=== PATIENT | female | born 1965 | race African-American/Black ===

== ENCOUNTER 2018-10-03 17:19 | Inpatient (IN) | payer MEDICARE, MEDICAID ==
[~2018-10-03 17:19] MED LIST: ISOVUE-370 76%-LOCM 1 ML ONE
[2018-10-03] MEDS ORDERED: Ondansetron PF 4 MG/2 ML Vial ONE (17:30)
[2018-10-03] MEDS ORDERED: Morphine 4 MG/ML VIAL ONE ×2 (17:30→19:37)
[2018-10-03] MEDS ORDERED: Adacel (T-DAP) 0.5 ML SYRINGE ONE (17:30)
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
[2018-10-03 18:13] LABS: #Eosinphils 0.1 thou/uL (0.0-0.7); #Lymphocytes 1.5 thou/uL (1.20-3.40); #Monocytes 0.8 thou/uL (0.11-0.59); %Basophils 0.3 % (0.0-1.0); %Eosinophils 0.9 % (0.0-10.0); %Lymphocytes 9.4 % (21.0-51.0); %Monocytes 4.6 % (0.0-10.0); %Neutrophils 84.9 % (42.0-75.0); Hemoglobin 12.4 g/dL (12.0-16.0); Mean Corpuscular HGB CONC 31.5 g/dL (32.0-36.0); Mean Corpuscular Hemoglobin 25.5 pg (27.0-31.0); Mean Corpuscular Volume 81.1 fL (78.0-98.0); Mean Platelet Volume 7.7 fL (7.4-10.4); Platelet Count 316 thou/uL (130-400); RBC Distribution Width 13.6 % (11.5-14.5); Red Blood Cell (RBC) Count 4.87 mill/uL (4.20-5.40); White Blood Cell (WBC) Count 16.5 thou/uL (4.8-10.8)
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
[2018-10-03] MEDS ORDERED: Lidocaine 1% w/Epinephrine 1:100K 20 ML VIAL ONE (18:22)
[2018-10-03 18:23] LABS: ALT (SGPT) 25 U/L (8-55); AST (SGOT) 61 U/L (5-34); Albumin 3.7 g/dL (3.5-5.0); Alkaline Phosphatase 90 U/L (40-150); Anion Gap 16 mmol/L (10-20); BUN (Urea Nitrogen) 10 mg/dL (9.8-20.1); Bilirubin, Total 0.3 mg/dL (0.2-1.2); Calc. Creatinine Clearance 0 mL/min (70-130); Calcium 9.2 mg/dL (7.8-10.44); Carbon Dioxide 19 mmol/L (22-29); Chloride 108 mmol/L (98-107); Estimated GFR-MDRD 53; Globulin 3.2 g/dL (2.4-3.5); Glucose 202 mg/dL (70-105); Potassium 3.5 mmol/L (3.5-5.1); Protein, Total 6.9 g/dL (6.0-8.3); Sodium 139 mmol/L (136-145)
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
[2018-10-03 19:04] LABS: Prothrombin Time 13.6 SEC (12.0-14.7)
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
[2018-10-03] MEDS ORDERED: Ketorolac Tromethamine 30 MG/ML VIAL ONE ×2 (19:55→19:56)
[2018-10-03] MEDS ORDERED: Acetaminophen 1,000 MG in Premix Bag 1 BAG IVPB ONE (20:00)
[2018-10-03] MEDS ORDERED: Promethazine HCl 25 MG/ML VIAL IM PRN (20:15)
[2018-10-03] MEDS ORDERED: Ondansetron PF 4 MG/2 ML Vial IVP PRN (20:15)
[2018-10-03] MEDS ORDERED: Dextrose 5% in Water 1,000 ML IV PRN (20:15)
[2018-10-03] MEDS ORDERED: Rib Fracture Protocol IV SCH (20:15)
[2018-10-03] MEDS ORDERED: Dextrose 50% Abboject 50 ML SYRINGE SLOW IVP PRN (20:15)
[2018-10-03] MEDS ORDERED: hydrALAZINE 20 MG/ML VIAL SLOW IVP PRN (20:15)
[2018-10-03] MEDS ORDERED: Famotidine 20 MG TAB PO SCH (21:00)
[2018-10-03 22:13] VITALS: BMI 36.6
[2018-10-03 23:20] LABS: Lactic Acid 1.6 mmol/L (0.5-2.2)
[2018-10-03] MEDS ORDERED: Cyclobenzaprine 10 MG TAB PO PRN (23:44)
[2018-10-03] MEDS ORDERED: traMADol HCl 50 MG TAB PO PRN (23:44)
[2018-10-03] MEDS ORDERED: Morphine 2 MG/ML SYRINGE SLOW IVP PRN (23:45)
[2018-10-03] MEDS ORDERED: Acetaminophen 650 MG Suppository PR SCH (23:59)
[2018-10-03] MEDS ORDERED: Ketorolac Tromethamine 30 MG/ML VIAL IVP SCH (23:59)
[2018-10-04] MEDS: Ketorolac Tromethamine 60 MG/2 ML VIAL IVP SCH ×3 (00:02→12:28)
[2018-10-04] MEDS ORDERED: Acetaminophen 650 MG Suppository PR SCH (02:00)
[2018-10-04] MEDS: Acetaminophen 1,000 MG in Premix Bag 1 BAG IVPB SCH ×2 (02:16→09:06)
[2018-10-04 04:47] LABS: #Eosinphils 0.1 thou/uL (0.0-0.7); #Lymphocytes 1.4 thou/uL (1.20-3.40); #Neutrophils 9.7 thou/uL (1.40-6.50); %Basophils 0.4 % (0.0-1.0); %Eosinophils 0.5 % (0.0-10.0); %Lymphocytes 11.2 % (21.0-51.0); %Neutrophils 79.9 % (42.0-75.0); Mean Corpuscular HGB CONC 31.2 g/dL (32.0-36.0); Mean Corpuscular Hemoglobin 25.4 pg (27.0-31.0); Mean Corpuscular Volume 81.4 fL (78.0-98.0); Mean Platelet Volume 9.3 fL (7.4-10.4); Platelet Count 212 thou/uL (130-400); RBC Distribution Width 13.7 % (11.5-14.5); Red Blood Cell (RBC) Count 4.33 mill/uL (4.20-5.40); White Blood Cell (WBC) Count 12.1 thou/uL (4.8-10.8)
[2018-10-04 04:58] LABS: Anion Gap 15 mmol/L (10-20); BUN (Urea Nitrogen) 11 mg/dL (9.8-20.1); Calc. Creatinine Clearance 92 mL/min (70-130); Calcium 8.6 mg/dL (7.8-10.44); Carbon Dioxide 18 mmol/L (22-29); Chloride 107 mmol/L (98-107); Estimated GFR-MDRD 75; Glucose 171 mg/dL (70-105); Magnesium 1.5 mg/dL (1.6-2.6); Phosphorus 4.1 mg/dL (2.3-4.7); Potassium 3.7 mmol/L (3.5-5.1); Sodium 136 mmol/L (136-145)
[2018-10-04] MEDS: traMADol HCl 50 MG TAB PO SCH ×5 (05:50→23:28)
[2018-10-04] MEDS: HumaLOG 300 UNITS/3 ML VIAL SC PRN ×3 (06:06→18:02)
--- NOTE | 2018-10-04 07:58 | RAD ---
XR Chest 1 View Portable HISTORY: Tiny left pneumothorax COMPARISON: None FINDINGS: There are multiple left-sided rib fractures. Right rib fractures seen on the previous day C T scan are not satisfactorily visualized. No definite pneumothorax is seen.
[2018-10-04] MEDS ORDERED: Magnesium Sulfate 4 GM, Potassium Chloride 20 MEQ in Sodium Chloride 0.9% 250 ML 250 ML IVPB SCH (08:15)
[2018-10-04] MEDS: Pregabalin 75 MG CAP PO SCH ×2 (08:57→20:48)
[2018-10-04] MEDS: Enoxaparin Sodium 40 MG/0.4 ML SYRINGE SC SCH (08:58)
[2018-10-04] MEDS ORDERED: Gabapentin 100 MG CAP PO SCH (09:00)
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
[2018-10-04] MEDS: Ibuprofen 600 MG TAB PO SCH ×3 (10:08→22:24)
[2018-10-04] MEDS: Acetaminophen 500 MG TAB PO SCH ×3 (12:28→23:29)
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
[2018-10-05] MEDS: traMADol HCl 50 MG TAB PO SCH ×4 (04:57→23:44)
[2018-10-05] MEDS: Ibuprofen 600 MG TAB PO SCH ×4 (04:57→21:08)
[2018-10-05] MEDS: Acetaminophen 500 MG TAB PO SCH ×4 (04:58→23:43)
[2018-10-05] MEDS: HumaLOG 300 UNITS/3 ML VIAL SC PRN ×4 (06:26→21:08)
[2018-10-05 06:39] LABS: #Eosinphils 0.1 thou/uL (0.0-0.7); #Lymphocytes 1.2 thou/uL (1.20-3.40); #Monocytes 0.6 thou/uL (0.11-0.59); #Neutrophils 11.5 thou/uL (1.40-6.50); %Basophils 0.1 % (0.0-1.0); %Lymphocytes 8.8 % (21.0-51.0); %Monocytes 4.6 % (0.0-10.0); %Neutrophils 85.4 % (42.0-75.0); Hemoglobin 10.9 g/dL (12.0-16.0); Mean Corpuscular HGB CONC 31.5 g/dL (32.0-36.0); Mean Corpuscular Hemoglobin 25.9 pg (27.0-31.0); Mean Platelet Volume 7.3 fL (7.4-10.4); Platelet Count 222 thou/uL (130-400); RBC Distribution Width 13.6 % (11.5-14.5); Red Blood Cell (RBC) Count 4.21 mill/uL (4.20-5.40); White Blood Cell (WBC) Count 13.5 thou/uL (4.8-10.8)
[2018-10-05 06:57] LABS: Anion Gap 13 mmol/L (10-20); BUN (Urea Nitrogen) 14 mg/dL (9.8-20.1); CK (CPK) 2494 U/L (29-168); Calc. Creatinine Clearance 86 mL/min (70-130); Calcium 8.4 mg/dL (7.8-10.44); Carbon Dioxide 18 mmol/L (22-29); Chloride 106 mmol/L (98-107); Estimated GFR-MDRD 70; Glucose 205 mg/dL (70-105); Potassium 4.3 mmol/L (3.5-5.1); Sodium 133 mmol/L (136-145)
[2018-10-05] MEDS ORDERED: Magnesium 2 GM/NS 0.9% 100 ML 2 GM in Premix Bag 1 BAG IVPB SCH (08:30)
[2018-10-05] MEDS: Enoxaparin Sodium 40 MG/0.4 ML SYRINGE SC SCH (08:44)
[2018-10-05] MEDS: Atenolol 25 MG TAB PO SCH (08:45)
[2018-10-05] MEDS: Amlodipine 5 MG TAB PO SCH (08:46)
[2018-10-05] MEDS: Pregabalin 75 MG CAP PO SCH ×2 (08:46→21:08)
[2018-10-05] MEDS ORDERED: (Milnacipran Hcl [Savella] 50 MG) PO SCH (09:00)
[2018-10-05 09:40] LABS: Phosphorus 3.1 mg/dL (2.3-4.7)
--- NOTE | 2018-10-05 11:02 | PRG ---
DATE OF SERVICE: 10/05/2018 SUBJECTIVE: Be is a 53-year-old female, who is hospital day 2 for a left hemipelvis rami fractures. She has been ambulating between 35 and 75 feet and weightbearing as tolerated fashion and doing relatively well with that. OBJECTIVE: GENERAL: She is alert, oriented, responsive, and appropriate with examiner. EXTREMITIES: She is neurovascularly intact. No malrotation or shortening of the hips appreciated. IMPRESSION: A 53-year-old female, hospital day 2 with left hemipelvis (superior-inferior rami fractures), stable fracture. PLAN: Continue current care. Weightbearing as tolerated. We will see her back in clinic in 3 to 4 weeks. Job ID: [id number]
[2018-10-05] MEDS: Sodium Chloride 0.9% 1,000 ML IV SCH ×2 (11:31→18:41)
[2018-10-05] MEDS ORDERED: Sodium Bicarbonate 150 MEQ in Dextrose 5% in Water 1,000 ML IV SCH (13:00)
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
[2018-10-05] MEDS ORDERED: Pregabalin 75 MG CAP PO SCH (21:00)
[2018-10-06] MEDS: Sodium Chloride 0.9% 1,000 ML IV SCH ×2 (04:04→09:35)
[2018-10-06] MEDS: Ibuprofen 600 MG TAB PO SCH ×2 (04:54→11:15)
[2018-10-06] MEDS: traMADol HCl 50 MG TAB PO SCH ×2 (04:54→11:15)
[2018-10-06] MEDS: Acetaminophen 500 MG TAB PO SCH ×2 (04:55→11:15)
[2018-10-06] MEDS: HumaLOG 300 UNITS/3 ML VIAL SC PRN (05:53)
[2018-10-06 06:39] LABS: #Eosinphils 0.3 thou/uL (0.0-0.7); #Lymphocytes 1.3 thou/uL (1.20-3.40); #Monocytes 0.6 thou/uL (0.11-0.59); #Neutrophils 11.7 thou/uL (1.40-6.50); %Basophils 0.3 % (0.0-1.0); %Eosinophils 2.4 % (0.0-10.0); %Lymphocytes 9.5 % (21.0-51.0); %Monocytes 4.5 % (0.0-10.0); %Neutrophils 83.3 % (42.0-75.0); Hemoglobin 9.2 g/dL (12.0-16.0); Mean Corpuscular HGB CONC 31.4 g/dL (32.0-36.0); Mean Corpuscular Volume 82.7 fL (78.0-98.0); Mean Platelet Volume 7.9 fL (7.4-10.4); Platelet Count 253 thou/uL (130-400); RBC Distribution Width 13.7 % (11.5-14.5); Red Blood Cell (RBC) Count 3.55 mill/uL (4.20-5.40)
[2018-10-06 06:58] LABS: Anion Gap 13 mmol/L (10-20); BUN (Urea Nitrogen) 12 mg/dL (9.8-20.1); CK (CPK) 1440 U/L (29-168); Calc. Creatinine Clearance 104 mL/min (70-130); Calcium 8.7 mg/dL (7.8-10.44); Carbon Dioxide 25 mmol/L (22-29); Chloride 103 mmol/L (98-107); Estimated GFR-MDRD 87; Glucose 184 mg/dL (70-105); Magnesium 1.7 mg/dL (1.6-2.6); Phosphorus 2.7 mg/dL (2.3-4.7); Potassium 3.5 mmol/L (3.5-5.1); Sodium 137 mmol/L (136-145)
[2018-10-06] MEDS: Enoxaparin Sodium 40 MG/0.4 ML SYRINGE SC SCH (09:25)
[2018-10-06] MEDS: Atenolol 25 MG TAB PO SCH (09:25)
[2018-10-06] MEDS: Amlodipine 5 MG TAB PO SCH (09:27)
[2018-10-06] MEDS: Pregabalin 75 MG CAP PO SCH (09:27)
[2018-10-06 11:51] VITALS: BP 135/87; TEMP 97.7
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
== END 2018-10-06 13:45 | disposition home or self-care (01) | DRG 964 ==
LOC: ERS 17:19 → IMCU/EMU 21:39 → SURG A 10-04 23:19
PROVIDERS: ADMIT Specialist; ATTEND Specialist
DX: S27.0XXA Traumatic pneumothorax, initial encounter (principal); S22.43XA Multiple fractures of ribs, bilateral, initial encounter for closed fracture; S32.592A Other specified fracture of left pubis, initial encounter for closed fracture; J45.909 Unspecified asthma, uncomplicated; I10 Essential (primary) hypertension; E11.9 Type 2 diabetes mellitus without complications; M79.7 Fibromyalgia; F41.9 Anxiety disorder, unspecified; M19.90 Unspecified osteoarthritis, unspecified site; V89.2XXA Person injured in unspecified motor-vehicle accident, traffic, initial encounter; Y92.9 Unspecified place or not applicable; Z90.710 Acquired absence of both cervix and uterus; Z87.891 Personal history of nicotine dependence; Z79.52 Long term (current) use of systemic steroids; Z79.899 Other long term (current) drug therapy
CPT/HCPCS: 12011; 36415; 36416; 70450; 71045; 71260; 72125; 74177; 80048; 80053; 82550; 83605; 83690; 83735; 84100; 85025; 85610; 85730; 86850; 86900; 86901; 90471; 90715; 93005; 94640; 94760; 96361; 96374; 96375; 96376; G0390; J0131; J1650; J1885; J2001; J2270; J2405; J3475; J3480; J7050; J7070; J7620; Q9966